=== PATIENT | male | born 1945 | race Caucasian/White ===

== ENCOUNTER 2023-05-13 11:28 | Day surgery (SDC) | payer MEDICARE ==
[~2023-05-13] VITALS: Ht 185.4 cm; Wt 94.9 kg
[2023-05-13] VITALS (8 sets, daily range): BP systolic 121–163; BP diastolic 40–62; PULSE 61–73; RESP 16–18; TEMP 97.8; O2SAT 18–97
[2023-05-13] MEDS ORDERED: normal saline 1,000 ML IV SCH (11:55)
[2023-05-13] MEDS ORDERED: diphenhydrAMINE 25mg capsule PO PRN (11:55)
[2023-05-13] MEDS ORDERED: GLUC100017 (12:08)
[2023-05-13] MEDS ORDERED: FISH1CAP15 PO (12:08)
[2023-05-13] MEDS ORDERED: AMLO-708 PO (12:08)
[2023-05-13] MEDS ORDERED: SPIR25TA5 PO (12:08)
[2023-05-13] MEDS ORDERED: HYDR25TA5 PO (12:08)
[2023-05-13] MEDS ORDERED: DICY10CA88 PO (12:08)
[2023-05-13] MEDS ORDERED: PRAV40TA3 PO (12:08)
[2023-05-13] MEDS ORDERED: [UNRECOGNIZED DRUG - CODE] (12:08)
[2023-05-13 12:55] LABS: ALBUMIN 3.6 G/DL (3.4-5.0); ANION GAP 6 (8-16); BASOPHILS % (AUTO) 0.4 % (0-1); BLOOD UREA NITROGEN 30 MG/DL (7-18); BUN/CREATININE RATIO 24.4 (10.0-20.0); CALCIUM 10.4 MG/DL (8.5-10.1); CHLORIDE 102 MMOL/L (99-107); CREATININE 1.23 MG/DL (0.60-1.10); EOSINOPHILS # (AUTO) 0.2 X10'3 (0-0.9); EOSINOPHILS % (AUTO) 2.8 % (0-6); GLUCOSE 99 MG/DL (70-104); HEMATOCRIT 44.8 % (42.0-52.0); HEMOGLOBIN 14.7 g/dl (14.0-17.9); LYMPHOCYTES # (AUTO) 1.7 X10'3 (1.1-4.8); LYMPHOCYTES % (AUTO) 28.5 % (21-51); MEAN CORPUSCULAR HEMOGLOBIN 30.2 PG (27.0-31.0); MEAN CORPUSCULAR HGB CONC 32.7 g/dL (33.0-36.5); MEAN CORPUSCULAR VOLUME 92.3 FL (78-98); MEAN PLATELET VOLUME 8.7 FL (7.4-10.4); MONOCYTES # (AUTO) 0.5 X10'3 (0-0.9); MONOCYTES % (AUTO) 9.3 % (2-12); NEUTROPHILS # (AUTO) 3.4 X10'3 (1.8-7.7); PLATELET COUNT 179 X10'3 (140-440); POTASSIUM 4.2 MMOL/L (3.5-5.1); RED BLOOD COUNT 4.85 X10'6 (4.70-6.10); RED CELL DISTRIBUTION WIDTH 13.7 % (11.5-14.5); SODIUM 135 MMOL/L (135-145); TOTAL CARBON DIOXIDE 26.8 MMOL/L (24-32); WHITE BLOOD COUNT 5.8 X10'3 (4.5-11.0); eCRCL 56 ML/MIN; eGFR 57 ML/MIN
[2023-05-13 12:57] LABS: PROTHROMBIN TIME 10.8 SECONDS (9.0-12.0)
[2023-05-13] MEDS ORDERED: LIDOcaine 1% (10mg/ml) 2ml vial ONE (12:58)
[2023-05-13] MEDS ORDERED: verapamil 2.5 mg/ml inj IV ONE (12:58)
[2023-05-13] MEDS ORDERED: fentaNYL/PF 50MCG/1 ML 2ML syringe ONE (12:58)
[2023-05-13] MEDS ORDERED: midazolam 1 mg/ML 2ml injection ONE ×3 (12:58→13:56)
[2023-05-13] MEDS ORDERED: iohexol 350 MG/ML 50ML vial IV ONE ×3 (12:59→14:07)
[2023-05-13] MEDS ORDERED: iohexol 350MG/ML 100ml bottle IV ONE (12:59)
[2023-05-13] MEDS ORDERED: heparin 1,000unit/ml 10ml vial 10 ML ONE (12:59)
[2023-05-13] MEDS ORDERED: nitroGLYCERIN 500mcg/5mL D5W 5 ML IV ONE (13:00)
[2023-05-13] MEDS ORDERED: proCHLORperazine 10 MG/2 ml inj ONE (13:55)
--- NOTE | 2023-05-13 14:30 | NUR ---
Patient returned from IR procedure via [place] with [facility]. Bedside report received and right radial site assessed by both Jayleen and Nam. patient attached to monitor and post-op vital signs started. Patient A&O x 4, denies pain or nausea. Patient provided with sandwich and juice. Patient's spouse at bedside. IVF increased to 300ml/hr per post-op orders from Dr. Reina.
[2023-05-13] MEDS ORDERED: HYDROcodone/acetaminophen 5mg/325mg tablet PO PRN (14:45)
[2023-05-13] MEDS ORDERED: ondansetron/PF 4mg/2ml inj IV PRN (14:45)
[2023-05-13] MEDS ORDERED: normal saline 1000ml 1,000 ML IV SCH (14:45)
[2023-05-13] MEDS ORDERED: HYDROcodone/acetaminophen 10/325mg tab PO PRN (14:45)
[2023-05-13] MEDS ORDERED: proCHLORperazine 10 MG/2 ml inj IV PRN (14:45)
== END 2023-05-13 17:45 | disposition home or self-care (01) ==
LOC: SSTAY O 11:28
PROVIDERS: ATTEND Internal Medicine Cardiovascular Disease
DX: I35.1 Nonrheumatic aortic (valve) insufficiency (principal); I71.21 Aneurysm of the ascending aorta, without rupture; I10 Essential (primary) hypertension; E78.5 Hyperlipidemia, unspecified; G62.9 Polyneuropathy, unspecified; Z79.899 Other long term (current) drug therapy
CPT/HCPCS: 36415; 80048; 83735; 85025; 85610; 93005; 93458; 99152; 99153; A6258; J1644; J2250; J3010; J3490; J7030; Q0163; Q9967; A6402; C1894; J0780